=== PATIENT | female | born 1975 | race Caucasian/White ===

== ENCOUNTER 2018-11-15 13:20 | Emergency (ER) | payer BC ==
[2018-11-15 14:26] VITALS: BP 132/89
--- NOTE | 2018-11-15 14:27 | UC ---
Ear Complaint HPI - HPI Summary HPI Summary: bilateral ear discomfort x 3 days right more that left , + pressure, no pain , some ringing in her right ear, and pressure mild nasal congestion , + dizziness as she moves her head no fever, no chills, no n/v/d/c, no headaches - History of Current Complaint Stated Complaint: BILATERAL EAR PAIN Time Seen by Provider: 11/15/18 14:08 Hx Obtained From: Patient ?: No Onset/Duration: Gradual Onset, Lasting Days - 3, Still Present Severity Initially: Moderate Severity Currently: Moderate Aggravating Factors: Nothing Alleviating Factors: Nothing Associated Signs/Symptoms: Positive: URI Symptoms. Negative: Discharge, Hearing Loss, Foreign Body Sensation, Trauma to Ear, Swelling @ - Allergies/Home Medications Allergies/Adverse Reactions: Allergies Allergy/AdvReac Type Severity Reaction Status Date / Time cephalexin Allergy Stomach Verified 11/15/18 14:27 Cramps PMH/Surg Hx/FS Hx/Imm Hx GI/ History: Gastroesophageal Reflux - Family History Known Family History: Negative: Diabetes Review of Systems All Other Systems Reviewed And Are Negative: Yes Constitutional: Positive: Negative Skin: Positive: Negative Eyes: Positive: Negative ENT: Positive: Negative Respiratory: Positive: Negative Is Patient Immunocompromised?: No Physical Exam Triage Information Reviewed: Yes Appearance: Well-Appearing, No Pain Distress, Well-Nourished Vital Signs Reviewed: Yes Eye Exam: Normal Eyes: Positive: Conjunctiva Clear ENT: Positive: Normal ENT inspection, Hearing grossly normal, Pharynx normal, TMs normal. Negative: TM bulging, TM dull, TM red Neck: Positive: Supple, Nontender, No Lymphadenopathy Respiratory: Positive: Chest non-tender, Lungs clear, Normal breath sounds Cardiovascular: Positive: RRR, No Murmur, Pulses Normal Abdominal Exam: Normal Neurological Exam: Normal Psychological Exam: Normal Skin Exam: Normal UC Physical Exam Vital Signs On Initial Exam: Initial Vitals Temp Pulse Resp BP Pulse Ox 98.5 F 96 18 132/89 99 11/15/18 14:17 11/15/18 14:17 11/15/18 14:17 11/15/18 14:17 11/15/18 14:17 - Neurological Exam Neurological: Normal, Sensory/Motor Intact, CN Intact II-III, Normal Gait, Speech Normal Ear Complaint Course/Dx - Differential Dx/Diagnosis Provider Diagnosis: Vertigo Discharge - Sign-Out/Discharge Documenting (check all that apply): Patient Departure All imaging exams completed and their final reports reviewed: No Studies - Discharge Plan Condition: Stable Disposition: HOME Prescriptions: Meclizine TAB* [Antivert 12.5 TAB*] 25 mg PO TID PRN #15 tab PRN Reason: Vertigo predniSONE [Prednisone 20 MG TAB] 20 mg PO BID #10 tablet Patient Education Materials: Vertigo (ED) Referrals: Sheryl Baumann NP [Primary Care Provider] - 7 Days - Billing Disposition and Condition Condition: STABLE Disposition: Home
== END 2018-11-15 14:51 | disposition home or self-care (01) ==
LOC: UCCORT 13:20
DX: R42 Dizziness and giddiness (principal); H92.03 Otalgia, bilateral; Z88.1 Allergy status to other antibiotic agents
CPT/HCPCS: 99212; G0463

== ENCOUNTER 2019-06-22 10:40 | Emergency (ER) | payer BC ==
[2019-06-22 11:48] VITALS: BP 111/76
--- NOTE | 2019-06-22 12:18 | ED ---
Throat Pain/Nasal Congestion - HPI Summary HPI Summary: 43 yr old female with the complaint of right frontal sinus pain, post nasal drip , coughing. Onset about four days ago. She feels like she has a sinus infection. She also is requesting prednisone due to feeling like she has asthmatic bronchitis coming on. She denies abdominal pain. She denies change in vision, speech, hearing, swallowing. She denies NVD. She has no other complaints. - History of Current Complaint Chief Complaint: UCGeneralIllness Time Seen by Provider: 06/22/19 11:55 - Allergies/Home Medications Allergies/Adverse Reactions: Allergies Allergy/AdvReac Type Severity Reaction Status Date / Time cephalexin Allergy Stomach Verified 06/22/19 11:48 Cramps Home Medications: Home Medications Bupropion XL* [Wellbutrin XL *] 150 mg PO DAILY 06/22/19 [History Confirmed ] Citalopram TAB* [CeleXA TAB*] 10 mg PO DAILY 06/22/19 [History Confirmed ] PMH/Surg Hx/FS Hx/Imm Hx Respiratory History: Reports: Hx Asthma - Surgical History Surgery Procedure, Year, and Place: nasal polyps and deviated septum, cholecystecomy Infectious Disease History: No Infectious Disease History: Denies: Traveled Outside the [place] in Last 30 Days - Family History Known Family History: Negative: Diabetes - Social History Occupation: Employed Full-time Lives: With Family Alcohol Use: Rare Substance Use Type: Reports: None Smoking Status (MU): Never Smoked Tobacco Review of Systems Constitutional: Negative Positive: Other - right frontal sinus pain, pressure, post nasal drip. Positive: Cough All Other Systems Reviewed And Are Negative: Yes Physical Exam Triage Information Reviewed: Yes Vital Signs On Initial Exam: Initial Vitals Temp Pulse Resp BP Pulse Ox 97.5 F 75 16 111/76 99 06/22/19 11:42 06/22/19 11:42 06/22/19 11:42 06/22/19 11:42 06/22/19 11:42 Vital Signs Reviewed: Yes Appearance: Positive: Well-Appearing, No Pain Distress Skin: Positive: Warm, Skin Color Reflects Adequate Perfusion Head/Face: Positive: Normal Head/Face Inspection Eyes: Positive: EOMI ENT: Positive: Pharynx normal, Nasal congestion, Nasal drainage, TMs normal, Sinus tenderness Neck: Positive: Nontender Respiratory/Lung Sounds: Positive: Clear to Auscultation, Breath Sounds Present Cardiovascular: Positive: RRR. Negative: Murmur Abdomen Description: Negative: Distended Musculoskeletal: Positive: Strength/ROM Intact Neurological: Positive: Sensory/Motor Intact, Alert, Oriented to Person Place, Time, CN Intact II-III, Normal Gait, Speech Normal Psychiatric: Positive: Normal Diagnostics - Vital Signs Vital Signs Temp Pulse Resp BP Pulse Ox 06/22/19 11:42 97.5 F 75 16 111/76 99 - Laboratory Lab Statement: Any lab studies that have been ordered have been reviewed, and results considered in the medical decision making process. EENT Course/Dx - Course Course Of Treatment: 43 yr old with sinusitis. Rx with Augmentin. The patient states she take Augmentin without any issues at all. She also will get some prednisone. - Diagnoses Provider Diagnoses: Sinusitis, Asthmatic bronchitis Discharge ED - Sign-Out/Discharge Documenting (check all that apply): Patient Departure All imaging exams completed and their final reports reviewed: No Studies - Discharge Plan Condition: Good Disposition: HOME Prescriptions: Amoxicillin/Clavulanate TAB* [Augmentin TAB 875*] 875 mg PO BID #20 tab predniSONE TAB* [Deltasone 20 MG TAB*] 40 mg PO DAILY #10 tab Patient Education Materials: Sinusitis (ED), Asthma (ED) Referrals: Ade Montemayor MD [Primary Care Provider] - - Billing Disposition and Condition Condition: GOOD Disposition: Home
== END 2019-06-22 12:17 | disposition home or self-care (01) ==
LOC: UCCORT 10:40
DX: J32.9 Chronic sinusitis, unspecified (principal); J45.909 Unspecified asthma, uncomplicated; Z88.1 Allergy status to other antibiotic agents
CPT/HCPCS: 99212; G0463

== ENCOUNTER 2019-10-12 12:15 | Emergency (ER) | payer BC, OTHER ==
[2019-10-12 12:59] VITALS: BP 131/83
--- NOTE | 2019-10-12 13:04 | UC ---
Throat Pain/Nasal Abe HPI - HPI Summary HPI Summary: 44-year-old female who had cold symptoms approximately 2 weeks ago which have developed into sinus congestion and sinus pressure. She is also asthmatic however has not been using her nebulizer treatment. She states she occasionally has a tight cough with wheezing at night. She is presently not a smoker. She is also concerned about Covid-19 and is requesting to be tested. She denies any fever, chills or shortness of breath. - History of Current Complaint Chief Complaint: UCGeneralIllness Stated Complaint: ST,BREEN,COUGH Time Seen by Provider: 10/12/19 12:22 Hx Obtained From: Patient Hx Last Menstrual Period: 10/12/19 ?: No Onset/Duration: Gradual Onset, Lasting Weeks Severity: Mild Pain Intensity: 1 Cough: Nonproductive Associated Signs & Symptoms: Positive: Wheezing, Sinus Discomfort, Nasal Discharge - Patient states she has green nasal coryza. - Allergies/Home Medications Allergies/Adverse Reactions: Allergies Allergy/AdvReac Type Severity Reaction Status Date / Time cephalexin Allergy Stomach Verified 10/12/19 12:33 Cramps Home Medications: Home Medications Budesonide/Formote 160/4.5(NF) [Symbicort 160/4.5 (NF)] 2 puff PO DAILY [History Confirmed 10/12/19] Esomeprazole Magnesium [Nexium 24Hr] 40 mg PO DAILY 11/15/18 [History Confirmed 10/12/19] Fluticasone NASAL SPRAY 50MCG* [Flonase NASAL SPRAY 50MCG*] 1 spray INH DAILY [History Confirmed 10/12/19] Loratadine 10 mg PO DAILY 11/15/18 [History Confirmed 10/12/19] Bupropion XL* [Wellbutrin XL *] 150 mg PO DAILY 06/22/19 [History Confirmed ] Citalopram TAB* [CeleXA TAB*] 10 mg PO DAILY 06/22/19 [History Confirmed ] Albuterol 2.5MG/3ML (0.083%)* [Ventolin 2.5 MG/3 ML NEB.SUSANA*] 2.5 mg INH Q4H # 30 units 10/12/19 [Rx] Albuterol HFA INHALER* [Ventolin HFA Inhaler*] 2 puff INH Q4H PRN 10/12/19 [ History Confirmed 10/12/19] Amoxicillin/Clavulanate TAB* [Augmentin TAB 875*] 875 mg PO BID 10 Days #20 tab 10/12/19 [Rx] Ascorbic Acid TAB* [Vitamin C TAB*] 500 mg DAILY 10/12/19 [History Confirmed ] PMH/Surg Hx/FS Hx/Imm Hx Previously Healthy: Yes Respiratory History: Asthma - Surgical History Surgical History: Yes Surgery Procedure, Year, and Place: nasal polyps and deviated septum, cholecystecomy - Family History Known Family History: Negative: Diabetes - Social History Occupation: Employed Full-time - 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 Lives: With Family Alcohol Use: Rare Substance Use Type: None Smoking Status (MU): Never Smoked Tobacco Review of Systems All Other Systems Reviewed And Are Negative: Yes ENT: Positive: Nasal Discharge, Sinus Congestion, Sinus Pain/Tenderness Respiratory: Positive: Cough - Occasional tight cough with wheezing at night. The patient advised me that she has prednisone which she can take at home when she needs it and she has been taking 10 mg daily for the past 3 days, it has improved her wheezing and chest tightness. Is Patient Immunocompromised?: No Physical Exam Triage Information Reviewed: Yes Appearance: Well-Appearing, No Pain Distress, Well-Nourished Vital Signs: Initial Vital Signs Temp 97.1 F 10/12/19 12:25 Pulse 86 10/12/19 12:25 Resp 16 10/12/19 12:25 BP 131/83 10/12/19 12:25 Pulse Ox 97 10/12/19 12:25 Vital Signs Reviewed: Yes Eyes: Positive: Conjunctiva Clear ENT: Positive: Pharynx normal, Nasal congestion, Nasal drainage - Yellowish postnasal drainage., TMs normal, Sinus tenderness - Mild tenderness over the frontal sinuses., Uvula midline, Other - Patient has yellow purulent nasal coryza Neck: Positive: Supple, Nontender, No Lymphadenopathy Respiratory: Positive: Lungs clear, Normal breath sounds, No respiratory distress, No accessory muscle use Cardiovascular: Positive: RRR, No Murmur, Pulses Normal, Brisk Capillary Refill Musculoskeletal Exam: Normal Neurological Exam: Normal Psychological Exam: Normal Skin Exam: Normal Throat Pain/Nasal Course/Dx - Course Course Of Treatment: The patient was given Augmentin 875 mg by mouth twice a day 10 days. She states this is the only antibiotic that works for her sinus infections. I also gave her a refill of her albuterol nebulizer solution and she is to do a nebulizer treatment every 4-6 hours as needed for tight cough or wheezing. - Differential Dx/Diagnosis Provider Diagnosis: Sinusitis, Bronchitis Discharge ED - Sign-Out/Discharge Documenting (check all that apply): Patient Departure All imaging exams completed and their final reports reviewed: No Studies - Discharge Plan Condition: Good Disposition: HOME Prescriptions: Albuterol 2.5MG/3ML (0.083%)* [Ventolin 2.5 MG/3 ML NEB.SUSANA*] 2.5 mg INH Q4H # 30 units Amoxicillin/Clavulanate TAB* [Augmentin TAB 875*] 875 mg PO BID 10 Days #20 tab Patient Education Materials: Sinusitis (ED) Forms: COVID-19 Tested & Isolation Referrals: Ade Montemayor MD [Primary Care Provider] - Additional Instructions: Increase fluids, use her albuterol nebulizer every 4-6 hours as needed for tight cough or wheezing. Take the Augmentin with food. Definite follow-up with your primary care provider if no improvement in 5-6 days. If you develop any shortness of breath, difficulty breathing or worsening symptoms you are to go to the emergency room. - Billing Disposition and Condition Condition: GOOD Disposition: Home - Attestation Statements Provider Attestation: I was available for consult. This patient was seen by the LEOBARDO. The patient was not presented to, seen by, or examined by me. -Ljj Addendum entered and electronically signed by Julianna Stanton NP 10/12/19 13: 26: UC Addendum Addendum: The nurse did the triage via telephone. The patient was examined by myself with me wearing full PPE upon entering the room. Covid swab was obtained without difficulty
--- NOTE | 2019-10-15 08:17 | UC ---
- Progress Note Progress Note: Covid NEGATIVE. Please advise patient. Course/Dx - Diagnoses Provider Diagnoses: Sinusitis, Bronchitis Discharge ED - Sign-Out/Discharge Documenting (check all that apply): Post-Discharge Follow Up All imaging exams completed and their final reports reviewed: No Studies - Discharge Plan Condition: Good Disposition: HOME Prescriptions: Albuterol 2.5MG/3ML (0.083%)* [Ventolin 2.5 MG/3 ML NEB.SUSANA*] 2.5 mg INH Q4H # 30 units Amoxicillin/Clavulanate TAB* [Augmentin TAB 875*] 875 mg PO BID 10 Days #20 tab Patient Education Materials: Sinusitis (ED) Forms: COVID-19 Tested & Isolation Referrals: Ade Montemayor MD [Primary Care Provider] - Additional Instructions: Increase fluids, use her albuterol nebulizer every 4-6 hours as needed for tight cough or wheezing. Take the Augmentin with food. Definite follow-up with your primary care provider if no improvement in 5-6 days. If you develop any shortness of breath, difficulty breathing or worsening symptoms you are to go to the emergency room. - Billing Disposition and Condition Condition: GOOD Disposition: Home
== END 2019-10-12 13:13 | disposition home or self-care (01) ==
LOC: UCCORT 12:15
DX: J32.9 Chronic sinusitis, unspecified (principal); J45.909 Unspecified asthma, uncomplicated; Z20.828 Contact with and (suspected) exposure to other viral communicable diseases; Z88.1 Allergy status to other antibiotic agents
CPT/HCPCS: 87635; 99212; G0463; G2023